=== PATIENT | male | born 2000 | race Two or more races ===

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

== ENCOUNTER 2019-11-29 22:08 | Emergency (ER) | payer OTHER ==
[~2019-11-29] VITALS: Ht 182.9 cm; Wt 90.5 kg
[2019-11-29] MEDS ORDERED: KETOROLAC 30 MG/1 ML ONE (22:36)
[2019-11-29 22:44] LABS: BASOPHILS # (AUTO) 0.04 x10^3/uL (0-0.3); BASOPHILS % (AUTO) 1 % (0-1); EOSINOPHILS # (AUTO) 0.11 x10^3/uL (0-0.8); EOSINOPHILS % (AUTO) 2 % (1-7); LYMPHOCYTES # (AUTO) 2.76 x10^3/uL (1-6.1); LYMPHOCYTES % (AUTO) 40 % (22-44); MD NO; MEAN CORPUSCULAR HEMOGLOBIN 31.2 pg (27.5-34.5); MEAN CORPUSCULAR HGB CONC 33.2 g/dL (33.2-36.2); MEAN CORPUSCULAR VOLUME 93.8 fL (81-97); MEAN PLATELET VOLUME 10.3 fL (7.4-10.4); MONOCYTES # (AUTO) 0.47 x10^3/uL (0-1.4); MONOCYTES % (AUTO) 7 % (2-9); NEUTROPHILS % (AUTO) 51 % (42-75); PLATELET COUNT 278 x10^3/uL (130-400); RED BLOOD COUNT 5.65 x10^6/uL (4.38-5.82); RED CELL DISTRIBUTION WIDTH 13.3 % (9.4-14.8)
[2019-11-29 22:54] LABS: ALANINE AMINOTRANSFERASE 37 U/L (12-78); ALBUMIN 4.7 g/dL (3.4-5.0); ANION GAP 9 mmol/L (5-15); CALCIUM 9.1 mg/dL (8.5-10.1); CHLORIDE 107 mmol/L (98-107); CREATININE 1.27 mg/dL (0.7-1.3)
[2019-11-29 22:59] LABS: ALKALINE PHOSPHATASE 73 U/L (45-117); BILIRUBIN,TOTAL 0.7 mg/dL (0.2-1.0); TOTAL PROTEIN 8.7 g/dL (6.4-8.2); TROPONIN I < 0.015 ng/mL (0.000-0.045)
[2019-11-29] MEDS ORDERED: KETOROLAC 30 MG/1 ML IVPush ONE (23:00)
[2019-11-29] MEDS ORDERED: SODIUM CHLORIDE 0.9% 1,000ML IVBOLUS ONE (23:00)
[2019-11-29 23:11] VITALS: BP 132/64
== END 2019-11-29 23:57 ==
LOC: ED 23:49
DX: R07.89 Other chest pain (principal); M79.10 Myalgia, unspecified site; Z90.89 Acquired absence of other organs
CPT/HCPCS: 36415; 71045; 80053; 84484; 85025; 93005; 96372; 99285; J1885; J7030

== ENCOUNTER 2019-11-30 15:03 | Emergency (ER) | payer OTHER ==
[~2019-11-30] VITALS: Ht 182.9 cm; Wt 90.2 kg
[2019-11-30 15:07] VITALS: BP 157/97
[2019-11-30 16:17] LABS: TROPONIN I < 0.015 ng/mL (0.000-0.045)
[2019-11-30] MEDS ORDERED: LORazepam 1MG TABLET PO ONE (17:30)
[2019-11-30] MEDS ORDERED: LORazepam 1MG TABLET ONE (18:05)
--- NOTE | 2019-11-30 18:14 | NUR ---
Attempted to d/c-road test fail (just got ativan and quite dizzy) To give water and have girlfriend assess if she is comfortable caring for him
--- NOTE | 2019-11-30 19:14 | NUR ---
Patient given discharge instructions and they have confirmed that they understand the instructions. Patient ambulatory with steady gait.
== END 2019-11-30 19:15 | disposition home or self-care (01) ==
LOC: ED 16:40
DX: J06.9 Acute upper respiratory infection, unspecified (principal); R05 Cough; R50.9 Fever, unspecified; R07.89 Other chest pain; M79.10 Myalgia, unspecified site; R11.0 Nausea; R09.81 Nasal congestion; Z90.89 Acquired absence of other organs
CPT/HCPCS: 36415; 84484; 93005; 99284